=== PATIENT | male | born 1960 | race Caucasian/White ===

== ENCOUNTER 2021-05-02 08:05 | Day surgery (SDC) | payer OTHER ==
[2021-05-01 10:39] VITALS: BMI 27.4
[2021-05-02] MEDS ORDERED: PROPOFOL 20 ML ONE (09:23)
[2021-05-02 10:08] VITALS: BP 130/83
[2021-05-02 10:11] VITALS: PULSE 74; TEMP 98.2
== END 2021-05-02 10:27 | disposition home or self-care (01) ==
LOC: FASU-ENDO 08:05
PROVIDERS: ATTEND Internal Medicine Gastroenterology
PROC: 0DJD8ZZ Inspection of Lower Intestinal Tract, Via Natural or Artificial Opening Endoscopic (ICD-10-PCS; principal; 2021-05-02 09:22)
DX: Z12.11 Encounter for screening for malignant neoplasm of colon (principal)